=== PATIENT | female | born 1990 | race Two or more races ===

== ENCOUNTER 2022-03-27 12:15 | Inpatient (IN) | payer OTHER ==
[~2022-03-27] VITALS: Ht 160 cm; Wt 70.3 kg
[2022-03-27] MEDS ORDERED: ZYRTEC10 M3 PO (13:47)
[2022-03-27] MEDS ORDERED: WELLBUTRIN SR150 MG PO (13:47)
[2022-03-27] MEDS ORDERED: AMBIEN10 MG PO (13:47)
[2022-04-01] MEDS ORDERED: Tylenol #3 PO (08:47)
[2022-04-01] MEDS ORDERED: NAPR500T14 PO (08:47)
== END 2022-04-01 09:35 | disposition home or self-care (01) | DRG 743 ==
LOC: LDR 03-29 09:30 → OB/GYN 03-29 09:45 → O/R 03-29 09:46 → LDR 03-29 12:15 → OB/GYN 03-29 12:15 → SURG-SUITE 03-29 16:15
PROVIDERS: ADMIT Obstetrics & Gynecology; ATTEND Obstetrics & Gynecology
PROC: 0UB90ZZ Excision of Uterus, Open Approach (ICD-10-PCS; principal; 2022-03-29 09:45)
DX: D25.2 Subserosal leiomyoma of uterus (principal); Z20.822 Contact with and (suspected) exposure to COVID-19